=== PATIENT | male | born 1950 | race Two or more races ===

== ENCOUNTER → 2017-03-26 12:38 | Outpatient (CLI) | payer MEDICAID ==
[~2017-03-26 12:38] MED LIST: FISH OIL 1,2001 CAP PO; GLIMEPIRIDE4 MG PO; GLUCOPHAGE500 MG PO; LANTUS INSULIN10 ML SC; LISINOPRIL5 MG PO; PROTONIX40 MG PO
[2017-04-30 10:36] VITALS: BMI 35.5
== END | disposition home or self-care (01) ==
LOC: D.RT 03-10 08:00
DX: R06.02 Shortness of breath (principal); F17.210 Nicotine dependence, cigarettes, uncomplicated

== ENCOUNTER 2017-04-21 07:49 | Day surgery (SDC) | payer MEDICAID ==
[~2017-04-21] VITALS: Ht 165.1 cm; Wt 96.8 kg
--- NOTE | ~2017-04-21 | OP ---
PATIENT NAME: BAKARI ALVARADO MEDICAL RECORD: [id number] :54 LOCATION:D.OPS ADMISSION DATE: SURGEON: PEDRO HOPPER DO DATE OF OPERATION: 04/21/2017 PROCEDURE: EGD with biopsies. INDICATIONS FOR PROCEDURE: Heartburn, right upper quadrant abdominal pain, and steatosis of the liver. SCOPE: Olympus video gastroscope. MEDICATIONS: Propofol 170 mg IV per anesthesia. ESTIMATED BLOOD LOSS: Minimal. COMPLICATIONS: None. FINDINGS: Informed consent was given. The patient was made comfortable with the above medication. After reaching an adequate level of sedation by slow IV push, the patient was placed on his left side. The endoscope was then advanced under direct visualization through the mouth to the second portion of the duodenum. The upper and middle thirds of the esophagus appeared normal. At the distal third of the esophagus and GE junction, there was evidence of unsmdzan-[id number]-[id number] LA class B reflux-induced esophagitis. A couple cold forceps biopsies were taken of this site. The endoscope was advanced beyond the GE junction into the stomach and retroflexed to view the cardia, where a small sliding hiatal hernia was present. The fundus appeared normal. Throughout the body and antrum of the stomach, there was patchy erythema and granularity as well as some congestion consistent with gastritis. Random biopsies were taken to submit for histology and to rule out H. pylori. The endoscope was advanced beyond the pylorus into the duodenum where inflammation and duodenitis was present. There were some superficial ulcerations within the duodenal bulb. Once the endoscope was passed the bulb, the second and third portion of the duodenum appeared normal. The endoscope was then withdrawn from the patient. The patient tolerated the procedure well and there were no complications. IMPRESSION: 1. LA class B zcyyepjs-dp-bcewgy reflux-induced esophagitis. 2. Patchy gastritis characterized by erythema, granularity, and congestion. 3. Duodenitis with duodenal ulcerations. PLAN AND RECOMMENDATIONS: 1. Discharge home when recovery parameters are met. 2. Follow up biopsy specimen results and treatment if indicated for H. pylori. 3. Gastroesophageal reflux disease precautions. 4. Continue current medications. 5. Protonix 40 mg daily times 60 days. 6. Notify the clinic if this fails to improve the symptoms. TRANSINT:[id number] Voice Confirmation ID: [id number] DOCUMENT ID: [id number] OPERATIVE REPORT [id number] BAKARI ALVARADO NATHAN A DO at 1225 CC: [id number] DICTATION DATE: 04/21/17 1011 CNC GRINDER: 04/21/17 1211 [facility] [address] [id number]
[2017-04-21] MEDS ORDERED: LISINOPRIL5 MG PO (08:25)
[2017-04-21] MEDS ORDERED: GLUCOPHAGE500 MG PO (08:25)
[2017-04-21] MEDS ORDERED: LANTUS INSULIN10 ML SC (08:26)
[2017-04-21] MEDS ORDERED: FISH OIL 1,2001 CAP PO (08:26)
[2017-04-21] MEDS ORDERED: GLIMEPIRIDE4 MG PO (08:27)
[2017-04-21 08:50] LABS: HEMATOCRIT 40.9 % (42.0-54.0); HEMOGLOBIN 14.5 g/dL (13.5-17.5); MCH 31.7 pg (26.0-34.0); MCHC 35.5 g/dL (31.0-37.0); MCV 89.3 fL (80.0-100.0); MEAN PLATELET VOLUME 9.5 fL (7.4-10.4); RBC 4.58 10x6/uL (4.20-6.10); WBC 6.1 10x3/uL (4.8-10.8)
[2017-04-21 08:52] VITALS: BP 130/75; Ht 165.1 cm; Wt 96.8 kg
[2017-04-21 09:05] LABS: CALC OSMOLALITY 285 mosm/kg (275-300); CALCIUM 8.5 mg/dL (8.5-10.1); CHLORIDE - SERUM 103 mmol/L (98-107); CREATININE - SERUM 0.7 mg/dL (0.6-1.3); GLUCOSE 255 mg/dL (74-106); POTASSIUM - SERUM 3.9 mmol/L (3.5-5.1); SODIUM 139 mmol/L (136-145); UREA NITROGEN 9 mg/dL (7-18); eGFR NON AFRICAN AMERICAN > 90 mL/min (90-120)
[2017-04-21] MEDS ORDERED: PROTONIX40 MG PO (10:25)
== END 2017-04-21 11:10 | disposition home or self-care (01) ==
LOC: D.OPS 07:49
PROVIDERS: Anesthesiology
DX: K21.0 Gastro-esophageal reflux disease with esophagitis (principal); K29.50 Unspecified chronic gastritis without bleeding; K29.80 Duodenitis without bleeding; K76.0 Fatty (change of) liver, not elsewhere classified; Z01.812 Encounter for preprocedural laboratory examination

== ENCOUNTER 2017-04-30 09:45 | Day surgery (SDC) | payer MEDICAID ==
[~2017-04-30] VITALS: Ht 165.1 cm; Wt 96.8 kg
--- NOTE | ~2017-04-30 | OP ---
PATIENT NAME: BAKARI ALVARADO MEDICAL RECORD: [id number] :52 LOCATION:D.OPS ADMISSION DATE: SURGEON: PEDRO HOPPER DO DATE OF OPERATION: 04/30/2017 DATE OF SERVICE: 04/30/2017 PROCEDURE: Colonoscopy, attempted. SCOPE: Olympus video pediatric colonoscope. MEDICATIONS: Propofol IV per anesthesia. See anesthesia report. ESTIMATED BLOOD LOSS: None. COMPLICATIONS: None. FINDINGS: Informed consent was given. The patient was made comfortable with propofol. After reaching an adequate level of sedation by slow IV push, the patient was placed on his left side. A digital rectal examination was performed and was normal. The endoscope was then advanced under direct visualization through the rectum to the sigmoid colon. There was extensive solid stool present throughout the colon, which inhibited adequate views of the colonic mucosa. The endoscope was not advanced beyond the sigmoid colon. The procedure was terminated due to the amount of solid stool and lack of surface visible on the colon mucosa. Retroflexion was not performed on this examination. The endoscope was withdrawn from the patient. The patient tolerated the procedure and there were no complications. IMPRESSION: Inadequate prep for colorectal cancer screening. PLAN AND RECOMMENDATIONS: 1. Discharge home when recovery parameters are met. 2. Reschedule colonoscopy at the patient's convenience with further instruction regarding prep. TRANSINT:[id number] Voice Confirmation ID: [id number] DOCUMENT ID: [id number] PEDRO HOPPER DO at 1616 CC: [id number] DICTATION DATE: 04/30/17 1346 POULTRY SCIENTIST: 04/30/[address] [facility] 04/30/[address] [address]
[2017-04-30 10:25] LABS: BASOPHILS 0.2 % (0-2); EOSINOPHILS 3.8 % (0-7); HEMATOCRIT 43.3 % (42.0-54.0); HEMOGLOBIN 15.1 g/dL (13.5-17.5); IMMATURE GRANULOCYTES 0.2 % (0-5); LYMPHOCYTES 35.3 % (15-50); MCH 31.5 pg (26.0-34.0); MCHC 34.9 g/dL (31.0-37.0); MCV 90.4 fL (80.0-100.0); MEAN PLATELET VOLUME 9.5 fL (7.4-10.4); MONOCYTES 10.2 % (2-11); NEUTROPHILS 50.3 % (40-80); PLATELET COUNT 243 10x3/uL (130-400); RBC 4.79 10x6/uL (4.20-6.10); WBC 6.7 10x3/uL (4.8-10.8)
[2017-04-30 10:36] VITALS: BP 136/80; Ht 165.1 cm; Wt 96.8 kg
[2017-04-30 10:41] LABS: CALC OSMOLALITY 287 mosm/kg (275-300); CALCIUM 8.7 mg/dL (8.5-10.1); CARBON DIOXIDE 28.5 mmol/L (21.0-32.0); CHLORIDE - SERUM 103 mmol/L (98-107); GLUCOSE 244 mg/dL (74-106); POTASSIUM - SERUM 4.3 mmol/L (3.5-5.1); SODIUM 140 mmol/L (136-145); UREA NITROGEN 14 mg/dL (7-18); eGFR NON AFRICAN AMERICAN 80 mL/min (90-120)
== END 2017-04-30 14:43 | disposition home or self-care (01) ==
LOC: D.OPS 09:45
PROVIDERS: Internal Medicine Gastroenterology
DX: Z12.11 Encounter for screening for malignant neoplasm of colon (principal); F17.200 Nicotine dependence, unspecified, uncomplicated; J45.909 Unspecified asthma, uncomplicated; I10 Essential (primary) hypertension; E11.9 Type 2 diabetes mellitus without complications; K21.9 Gastro-esophageal reflux disease without esophagitis

== ENCOUNTER 2017-05-28 09:47 | Day surgery (SDC) | payer MEDICAID ==
[~2017-05-28] VITALS: Ht 165.1 cm; Wt 96.8 kg
--- NOTE | ~2017-05-28 | OP ---
PATIENT NAME: BAKARI ALVARADO MEDICAL RECORD: [id number] :52 LOCATION:D.OPS ADMISSION DATE: SURGEON: PEDRO HOPPER DO DATE OF OPERATION: 05/28/2017 PROCEDURE: Colonoscopy with biopsies and polypectomy. INDICATIONS FOR PROCEDURE: Screening colonoscopy. SCOPE: [employer] video pediatric colonoscope. MEDICATIONS: Propofol 400 mg IV per anesthesia. WITHDRAWAL TIME: 18 minutes. ESTIMATED BLOOD LOSS: Minimal. COMPLICATIONS: None. FINDINGS: Informed consent was given. The patient was made comfortable with the above medication. After reaching an adequate level of sedation by slow IV push, the patient was placed on his left side. A digital rectal examination was performed and was normal. The endoscope was then advanced under direct visualization through the rectum to the terminal ileum. The scope was slowly withdrawn and mucosa was carefully examined. The prep quality was fair. In the cecum and ascending colon, there were a few patchy areas of pseudomembranes, which appeared consistent with C. difficile colitis. Cold forceps biopsies were taken of few of these sites for confirmation of the diagnosis. There were scattered diverticula of small diameter throughout the entire colon. Severity was mild. There were 3 polyps visualized on today's examination. The first was located in the transverse colon. It measured approximately 7-8 mm in diameter and was sessile. It was removed in 1 piece using hot snare and completely retrieved. Two other polyps were located in the rectum and were benign-appearing and sessile. They measured approximately 3-4 mm in diameter and removed using cold snare in 1 piece. Retroflexion was performed in the rectum with visualization of grade I nonbleeding internal hemorrhoids. The endoscope was then withdrawn from the patient. The patient tolerated the procedure well and there were no complications. IMPRESSION: 1. Three polyps as described above removed using snare, both hot and cold. 2. Mild diverticulosis involving all segments of the colon. 3. Grade I internal hemorrhoids. PLAN AND RECOMMENDATIONS: 1. Discharge home when recovery parameters are met. 2. Follow up biopsy specimen results. 3. High fiber diet. 4. Continue current medications. 5. Flagyl 500 mg orally t.i.d. for 10 days for C. difficile colitis. 6. Recall colonoscopy in 3 years for surveillance with known history of polyps. TRANSINT:[id number] Voice Confirmation ID: [id number] DOCUMENT ID: [id number] OPERATIVE REPORT [id number] BAKARI ALVARADO NATHAN A DO CC: [id number] DICTATION DATE: 05/28/17 1253 EXAMINATION GRADER: 05/28/17 1422 [facility] [address] [id number]
[2017-05-28 10:56] VITALS: BP 171/93; Ht 165.1 cm; Wt 96.8 kg
[2017-05-28 12:03] LABS: CALC OSMOLALITY 287 mosm/kg (275-300); CALCIUM 8.5 mg/dL (8.5-10.1); CARBON DIOXIDE 24.6 mmol/L (21.0-32.0); CHLORIDE - SERUM 103 mmol/L (98-107); CREATININE - SERUM 0.7 mg/dL (0.6-1.3); POTASSIUM - SERUM 4.5 mmol/L (3.5-5.1); SODIUM 138 mmol/L (136-145); UREA NITROGEN 10 mg/dL (7-18); eGFR NON AFRICAN AMERICAN > 90 mL/min (90-120)
[2017-05-28 12:04] LABS: GLUCOSE 328 mg/dL (74-106)
[2017-05-28 12:06] LABS: BASOPHILS 0.2 % (0-2); EOSINOPHILS 3.2 % (0-7); HEMOGLOBIN 15.8 g/dL (13.5-17.5); LYMPHOCYTES 48.3 % (15-50); MCH 31.7 pg (26.0-34.0); MCHC 35.9 g/dL (31.0-37.0); MCV 88.2 fL (80.0-100.0); MEAN PLATELET VOLUME 10.2 fL (7.4-10.4); NEUTROPHILS 39.3 % (40-80); PLATELET COUNT 216 10x3/uL (130-400); RBC 4.99 10x6/uL (4.20-6.10); RDW 12.6 % (11.5-14.5); WBC 5.7 10x3/uL (4.8-10.8)
== END 2017-05-28 15:00 | disposition home or self-care (01) ==
LOC: D.OPS 09:47
PROVIDERS: Anesthesiology
DX: Z12.11 Encounter for screening for malignant neoplasm of colon (principal); K63.5 Polyp of colon; D12.3 Benign neoplasm of transverse colon; K57.30 Diverticulosis of large intestine without perforation or abscess without bleeding; K64.0 First degree hemorrhoids; Z01.812 Encounter for preprocedural laboratory examination

== ENCOUNTER → 2017-06-17 09:54 | Outpatient (CLI) | payer MEDICAID ==
[2017-05-28 10:56] VITALS: BMI 35.5
== END | disposition home or self-care (01) ==
LOC: D.NM 09:54
DX: R07.9 Chest pain, unspecified (principal)

== ENCOUNTER → 2017-07-07 10:20 | Outpatient (CLI) | payer MEDICARE ==
[2017-05-28 10:56] VITALS: BMI 35.5
== END | disposition home or self-care (01) ==
LOC: D.RAD 09:15
DX: M25.561 Pain in right knee (principal)

== ENCOUNTER 2020-06-30 06:53 | Day surgery (SDC) | payer MEDICARE, MEDICAID ==
[~2020-06-30] VITALS: Ht 165.1 cm; Wt 95.3 kg
[~2020-06-30 06:53] MED LIST changes: +CYCLOBENZAPRINE5 MG PO; +GLUCOTROL XL 1010 MG PO; +HYTRIN1 MG PO; +LANTUS INS100 UNITS/ SC; -LANTUS INSULIN10 ML SC; +TENORMIN50 MG PO; +ULTRAM50 MG PO; +VOLTAREN100 GM TOPICAL
[2020-06-30 07:21] LABS: BASOPHILS 0.4 % (0-2); EOSINOPHILS 5.4 % (0-7); HEMATOCRIT 39.9 % (42.0-54.0); IMMATURE GRANULOCYTES 0.3 % (0-5); LYMPHOCYTE ABS# 2.36 10x3/uL (1.32-3.57); LYMPHOCYTES 29.7 % (15-50); MCH 31.9 pg (26.0-34.0); MCHC 35.1 g/dL (31.0-37.0); MCV 90.9 fL (80.0-100.0); MEAN PLATELET VOLUME 8.9 fL (7.4-10.4); MONOCYTES 9.4 % (2-11); NEUTROPHIL ABS# 4.35 10x3/uL (1.78-5.38); NEUTROPHILS 54.8 % (40-80); PLATELET COUNT 263 10x3/uL (130-400); RBC 4.39 10x6/uL (4.20-6.10); RDW 13.1 % (11.5-14.5); WBC 7.9 10x3/uL (4.8-10.8)
[2020-06-30 07:23] LABS: CALC OSMOLALITY 281 mosm/kg (275-300); CALCIUM 8.4 mg/dL (8.5-10.1); CARBON DIOXIDE 30.2 mmol/L (21.0-32.0); CHLORIDE - SERUM 106 mmol/L (98-107); CREATININE - SERUM 0.8 mg/dL (0.6-1.3); GLUCOSE 165 mg/dL (74-106); POTASSIUM - SERUM 3.8 mmol/L (3.5-5.1); SODIUM 140 mmol/L (136-145); UREA NITROGEN 10 mg/dL (7-18); eGFR NON AFRICAN AMERICAN > 90 mL/min (90-120)
[2020-06-30 07:34] LABS: SARS-CoV-2 ANTIGEN NEGATIVE- SARS-COV-2 (NEGATIVE)
[2020-06-30 08:22] VITALS: BP 131/74; Ht 165.1 cm; Wt 95.3 kg
--- NOTE | 2020-06-30 12:45 | NUR ---
LEFT WRIST PIV DC'D WITH TIP INTACT. DISCHARGE INSTRUCTIONS REVIEWED WITH PATIENT. PATIENT MAKING CALLS TO FIND A RIDE HOME, PATIENT STATES THE PERSON WHO WAS SUPPOSED TO TAKE HIM HOME NOW SAYS THEY CAN'T. THIS NURSE ASSISTS PATIENT TO DRESS IN PERSONAL CLOTHING AND KEEP OPERATIVE EXTREMITY SUPPORTED AND GET SLING SHOT SLING PUT BACK ON CORRECTLY. PATIENT AMBULATING AROUND ROOM WITHOUT UNSTEADINESS OR DIZZINESS
--- NOTE | 2020-06-30 13:53 | NUR ---
CAB CALLED FOR PATIENT, DUE TO PATIENT NOT BEING ABLE TO SECURE TRANSPORTATION HOME. NOW AWAITING CAB TO ARRIVE, PATIENT LYING IN BED, AWAKE, ALERT, DENIES COMPLAINTS, FULLY DRESSED, HAS SLING ON
--- NOTE | 2020-07-01 10:32 | OP ---
PATIENT NAME: OLIVIA TABARES MEDICAL RECORD: [id number] :52 LOCATION:YASHIRA ADMISSION DATE: SURGEON: JUWAN STOKES DO DATE OF OPERATION: 06/30/2020 PROCEDURE PERFORMED: Right shoulder arthroscopy with rotator cuff repair, distal clavicle excision and subacromial decompression, labral debridement and biceps tenodesis. PREOPERATIVE DIAGNOSES: Right shoulder full thickness rotator cuff tear, SLAP tear, subacromial impingement and acromioclavicular joint arthritis POSTOPERATIVE DIAGNOSES: Right shoulder full thickness rotator cuff tear, SLAP tear, subacromial impingement and acromioclavicular joint arthritis. INDICATIONS: Mr. Olson is a 70-year-old male who has had right shoulder pain for quite some time. He had an MRI showing the above findings. I discussed with him the risks and benefits of the procedure including infection, bleeding, damage to nerve or vessel, need for further surgery, continued pain, retear of the tendon, need for physical therapy, possibility of arthrofibrosis or frozen shoulder syndrome, continued pain and a fracture and he signed the consent. SURGEON: Juwan Stokes DO DESCRIPTION OF PROCEDURE: The patient was taken to the operative suite after getting a block by anesthesia. He was given 900 mg of clindamycin laid in the left lateral decubitus position with the right shoulder up. Right shoulder was then prepped and draped in sterile fashion. He was sedated and LMA was placed. A timeout was performed and everyone was in agreeance with the correct side, site, patient and procedure. After he was prepped and draped, I then inserted an 18-gauge spinal needle into the shoulder joint itself and inflated it with 60 mL of normal saline. After it was inflated with 60 cc normal saline, I then made an incision over the posterior portal site with an 11-blade scalpel. The trocar was then removed and the joint then entered the camera into the joint and then we established an anterior portal with an 18-gauge spinal needle 11-blade scalpel. Trocar was entered in, then saw a SLAP tear there. He appeared to have good fibers intact on the articular side, made some small tears in it. The subscapularis tendon was in good repair. The infraspinatus had some fraying and in the biceps tendon as well. The joint was in good shape and I did not see any chondromalacia in the inferior gutter. I then brought in a bur through the anterior portal and did a biceps tenotomy. I then went to the subacromial space, established a lateral portal with an 18-gauge spinal needle and 11-blade scalpel. There was subacromial decompression, bursectomy, distal clavicle excision through anterior portal and acromioplasty through a lateral portal. He had severe tearing of the supraspinatus tendon on the bursal side. I debrided the best I could and saw there was full thickness. I then marked it with a spinal needle and opened up the lateral portal with a 15 blade scalpel and then careful dissection down to the tear and then put a medial row anchor, but through the tendon with 4 suture tapes and repaired it nicely over to a lateral row anchor. I then put a larger Ramirez implant on and stapled it into place. I then went to the anterior humerus, made an incision, dissected carefully around the long head of the biceps tendon, put a hole in the humerus with the drill and then used a 2.9 jugular lock after whipstitching the tendon, put it through the loop and tied it to the ToggleLoc loop and cinched it down to the humerus. I then cut the loop, went through the long head biceps tendon and tied it down and OPERATIVE REPORT [id number] OLIVIA TABARES cut the excess tendon and sutured then irrigated. Yeny Jade, certified surgical assistant then closed 2 open site with 2-0 Vicryl in inverted interrupted fashion, 4-0 Monocryl ran on the skin and then 4-0 Monocryl on the portal site, placed Dermabond glue on all of them and dressed with Telfa and Tegaderm. He was awakened and put in a sling, taken to recovery in stable condition. BLOOD LOSS: Minimal. COMPLICATIONS: None. Please note, I also did a labral debridement, biceps tenotomy with the bur and debrided the torn labrum back to a stable point. TRANSINT:[id number] Voice Confirmation ID: [id number] DOCUMENT ID: [id number] JUWAN STOKES DO at 1032 CC: [id number] DICTATION DATE: 06/30/20 1103 BRAIDER SETTER: 06/30/20 2252 [facility] 06/30/20 [place] [id number] [facility] [place] [id number]
== END 2020-06-30 16:05 | disposition home or self-care (01) ==
LOC: D.OPS 06:53
PROVIDERS: Anesthesiology; ATTEND Orthopaedic Surgery
DX: M75.41 Impingement syndrome of right shoulder (principal); M13.811 Other specified arthritis, right shoulder; M75.121 Complete rotator cuff tear or rupture of right shoulder, not specified as traumatic; M25.511 Pain in right shoulder

== ENCOUNTER 2020-08-08 09:17 | Inpatient (IN) | payer MEDICARE, MEDICAID ==
[~2020-08-08] VITALS: Ht 165.1 cm; Wt 95.3 kg
--- NOTE | ~2020-08-08 | HEMODYNAMI ---
PATIENT:OLIVIA TABARES MEDICAL RECORD: [id number] : 54 [id number] ADMISSION DATE: 08/08/20 Generatedon:113:48 Patient name: OLIVIA VILLEGAS Patient #: [id number] SS N: : 1950 Date of study: 08/08/2020 Page: Of Hemodynamic Procedure Report Patient Data Patient Demographics Procedure consent was obtained First Name: OLIVIA Gender: Male Last Name: JENNY VILLEGAS : 1950 [facility] Initial: A Age: 70 year(s) Patient #: [id number] Race: Other Additional ID: [id number] Contact details Address: [address] [place] [address] State: [place] City: [place] Zip code: [address] Past Medical History Allergies: No known allergies Admission Admission Data Admission Date: 08/08/2020 Admission Time: 9:17 Room #: D.2238 Height (in.): 65 BSA: 2.02 (m2) Height (cm.): 165.1 BMI: 34.95 (kg/m2) Weight (lbs.): 210 Weight (kg.): 95.25 Procedure Procedure Types Cath Procedure Peripheral Cath Diagnostic Procedure PICC PICC Line Placement Procedure Description Procedure Date Procedure Date: 08/08/2020 Procedure Start Time: 13:39 Procedure Staff Name Function Lino Rivas MD Performing Physician Sabina Trinh RT Accountant Kristel Ruelas RN Nurse Eran Son RT Scrub Procedure Data Cath Procedure Fluoroscopy Diagnostic fluoroscopy Total fluoroscopy Time: 0.3 time: 0.3 min min Diagnostic fluoroscopy Total fluoroscopy dose: 3 dose: 3 mGy mGy Hemodynamics Rest BSA: 2.02 (m2) O2 Consumption: Estimated: 274.72 (ml/min) O2 Consumption indexed : Estimated:136 (ml/min/m) Pre Cath Intra NCS Post Cath Procedure Log Time Note 13:12:57 Patient Height : 65 inches 13:13:06 Patient Weight : 210 lbs 13:13:39 Use device set PICC 13:13:41 SHIELD Tiaraew ([id number]) opened to sterile field. 13:13:44 Sterile Angiographic Pack opened to sterile field. 13:13:45 Bag Decanter (2002S) opened to sterile field. 13:13:54 PowerPICC 5Fr double lumen catheter opened to sterile field. 13:13:58 - 13:25:57 Time tracking: Regular hours (M-F 7:00 - 5:00) 13:26:11 Patient received from Med/Surg to IR Alert and oriented. Tansferred to table in Supine position. 13:26:15 Signed procedure consent form obtained from patient. 13:26:17 Pre-procedure instructions explained to patient. 13:26:18 Pre-op teaching completed and patient verbalized understanding. 13:26:30 Patient allergic to No known allergies 13:26:44 Left Arm area was prepped with chlora-prep and draped in sterile fashio n 13::46 - 13:34:50 Physician arrived 13:34:50 --------ALL STOP TIME OUT------ 13:34:51 Final Timeout: patient, procedure, and site verified with staff and physician. All members of the team are in agreement. 13:35:32 Full Disclosure recording started 13:35:32 Procedure started. 13:44:23 Venous access obtained using ultrasound guidance. 13:44:26 PICC line was trimmed to 48cm and advanced to the superior vena cava.Position verified under fluoroscopy. 13:46:23 Procedure ended.(Physican Out) 13:46:32 Fluoroscopy time 00.30 minutes. 13:46:34 Fluoroscopy dose: 3 mGy 13:46:34 Flurop Dose total: 3 13:46:37 Procedure and supply charges have been captured, reviewed, submitted an d are correct. Device Usage Item Name Manufacture Quantity Catalog Hospital Part Current Minimal Lot# / Number Charge Number Stock Stock Serial# Code BEBETO Higginbotham 1 [id number] 5 Sorbaview ([id number]) Sterile Cardinal 1 [id number] 5 Angiographic Health Pack Bag Decanter Microtek 1 [id number] [id number] 5 () [employer] PowerPICC Bard 1 [id number] [id number] 5 5Fr double lumen catheter Signature Audit [place] Stage Time Signature Unsigned Intra-Procedure 08/08/2020 Sabina Trinh 1:48:46 PM RT(R) [facility] [address] [place] [address]
[2020-08-08 10:40] LABS: BASOPHILS 0.2 % (0-2); EOSINOPHILS 2.6 % (0-7); HEMATOCRIT 37.6 % (42.0-54.0); IMMATURE GRANULOCYTES 0.2 % (0-5); LYMPHOCYTE ABS# 2.97 10x3/uL (1.32-3.57); LYMPHOCYTES 30.7 % (15-50); MCH 30.1 pg (26.0-34.0); MCHC 34.6 g/dL (31.0-37.0); MEAN PLATELET VOLUME 8.4 fL (7.4-10.4); MONOCYTES 7.4 % (2-11); NEUTROPHIL ABS# 5.71 10x3/uL (1.78-5.38); NEUTROPHILS 58.9 % (40-80); RBC 4.32 10x6/uL (4.20-6.10); RDW 12.5 % (11.5-14.5); WBC 9.7 10x3/uL (4.8-10.8)
[2020-08-08 10:41] LABS: PLATELET COUNT 361 10x3/uL (130-400)
[2020-08-08 10:50] LABS: C-REACTIVE PROTEIN 3.3 mg/dL (0.0-0.9); CALC OSMOLALITY 279 mosm/kg (275-300); CARBON DIOXIDE 26.4 mmol/L (21.0-32.0); CHLORIDE - SERUM 106 mmol/L (98-107); CREATININE - SERUM 0.7 mg/dL (0.6-1.3); GLUCOSE 141 mg/dL (74-106); POTASSIUM - SERUM 4.2 mmol/L (3.5-5.1); SODIUM 140 mmol/L (136-145); UREA NITROGEN 11 mg/dL (7-18); eGFR NON AFRICAN AMERICAN > 90 mL/min (90-120)
[2020-08-08 11:30] VITALS: BP 162/85; BMI 35.0
[2020-08-08 12:50] LABS: ERYTHROCYTE SEDIMENTATION RATE 51 mm/hr (0-20)
--- NOTE | 2020-08-08 13:10 | NUR ---
PATIENT TO GET PICC LINE AT THIS TIME
[2020-08-08 13:38] VITALS: BP 112/85
--- NOTE | 2020-08-08 14:50 | NUR ---
PATIENT AWAKE WITH NO COMPLAINTS OR SIGNS OF DISTRESS AT THIS TIME. DREESSING TO SHOULDER CDI. BSCDS ON AND WORKING. CALLL IGHT WITHIN REACH.
--- NOTE | 2020-08-08 15:45 | NUR ---
PATIENT UPSET AND MAD BECAUSE HE SAID HE IS TIRED OF BEING NPO. TOOK SCD MACHINE OFF. STATED HE DIDNT WANT TO WEAR THEM. IV INTACT. LAID BACK IN BED. CALLLIGHT WITHIN REACH.
[2020-08-08 17:56] VITALS: BP 173/78
--- NOTE | 2020-08-08 19:30 | NUR ---
PATIENT IN BED WITH IV INTACT. DR. STOKES IN WITH PATIENT. CALL LIGHT WITHIN REACH.
[2020-08-09 07:10] VITALS: BP 163/95
[2020-08-09 07:22] LABS: BASOPHILS 0.3 % (0-2); EOSINOPHILS 1.8 % (0-7); HEMATOCRIT 38.6 % (42.0-54.0); IMMATURE GRANULOCYTES 0.2 % (0-5); LYMPHOCYTE ABS# 3.01 10x3/uL (1.32-3.57); LYMPHOCYTES 27.3 % (15-50); MCH 29.6 pg (26.0-34.0); MCHC 33.7 g/dL (31.0-37.0); MCV 87.9 fL (80.0-100.0); MEAN PLATELET VOLUME 8.7 fL (7.4-10.4); MONOCYTES 9.4 % (2-11); NEUTROPHIL ABS# 6.73 10x3/uL (1.78-5.38); PLATELET COUNT 390 10x3/uL (130-400); RBC 4.39 10x6/uL (4.20-6.10); RDW 12.8 % (11.5-14.5)
--- NOTE | 2020-08-09 07:30 | NUR ---
LAYING IN BED RESTING, NO DISTRESS NOTED, NO NEEDS VOICED, CALL LIGHT IN REACH, WILL MONITOR
[2020-08-09 07:36] LABS: CALC OSMOLALITY 283 mosm/kg (275-300); CALCIUM 8.6 mg/dL (8.5-10.1); CARBON DIOXIDE 25.2 mmol/L (21.0-32.0); CHLORIDE - SERUM 103 mmol/L (98-107); CREATININE - SERUM 0.8 mg/dL (0.6-1.3); POTASSIUM - SERUM 3.7 mmol/L (3.5-5.1); SODIUM 139 mmol/L (136-145); UREA NITROGEN 12 mg/dL (7-18); eGFR NON AFRICAN AMERICAN > 90 mL/min (90-120)
[2020-08-09 07:37] LABS: GLUCOSE 214 mg/dL (74-106)
--- NOTE | 2020-08-09 08:10 | OP ---
PATIENT NAME: BOGDAN TABARES MEDICAL RECORD: [id number] :54 LOCATION:D.MS Reeves2238 ADMISSION DATE:08/08/20 SURGEON: EFREN STOKES DO DATE OF OPERATION: 08/08/2020 PROCEDURE PERFORMED: Right shoulder arthroscopy with irrigation and debridement. PREOPERATIVE DIAGNOSIS: Right shoulder postoperative infection. POSTOPERATIVE DIAGNOSIS: Right shoulder postoperative infection. INDICATIONS: Mr. Bogdan Plascencia is a 70-year-old male who underwent right shoulder mini open rotator cuff repair on . He started to have drainage from his wound and was placed on oral antibiotics and did not help. He then came to the clinic with draining purulent fluid. What him on the schedule for today for the procedure. I informed him of the risks of this including arthrofibrosis of the shoulder, continued pain, continued infection, need for further surgery, serial debridements, re-repair of his rotator cuff, blood clots, need for long-term antibiotics and even and he signed the consent. SURGEON: Efren Stokes DO DESCRIPTION OF PROCEDURE: The patient was taken to the operative suite, laid in left lateral decubitus position with the right shoulder up. He was given 2 grams of Ancef. He was sedated and LMA was placed. The right shoulder was prepped and draped in sterile fashion. A timeout was performed and everyone was in agreement with correct side, site, patient and procedure. I then began by making an incision over the lateral mini open incision and then purulent fluid came out of that incision after I opened it. We then cultured that. I then inflated the shoulder joint with 60 mL normal saline into the trocar into the joint through a posterior portal after I established an 11-blade scalpel, anterior portal was established with spinal needle 11-blade scalpel, trocar enter into the joint. I then brought the shaver and I debrided the synovium of the joint as well as I could. I then irrigated the joint out with 6 liters of saline. We then went to the subacromial space and went to a lateral portal and debrided the subacromial space with shaver and got a tissue biopsy. I then irrigated with 6 liters in the subacromial space. I debrided the subacromial space deep tissue. Anchors were pulled out also. I then closed the skin with 4-0 Monocryl in inverted interrupted fashion on the anterior, posterior and lateral incisions. He was then dressed with Telfa and Tegaderm, awakened and taken to recovery in stable condition. BLOOD LOSS: Minimal. COMPLICATIONS: None. TRANSINT:[id number] Voice Confirmation ID: [id number] DOCUMENT ID: [id number] OPERATIVE REPORT [id number] BOGDAN TABARES MICHAEL D, DO at 0810 CC: [id number] DICTATION DATE: 08/08/202207 PAINTER AND BODY WORK: 08/09/20 0230 ADM IN [facility] [address] [place] [address]
[2020-08-09 09:23] VITALS: BP 163/95
--- NOTE | 2020-08-09 10:10 | NUR ---
pt sleeping, will monitor
--- NOTE | 2020-08-09 12:00 | NUR ---
PT UP AMBULATING IN HALLWAYS, TOLERATING WELL
[2020-08-09 13:28] VITALS: BP 165/91
--- NOTE | 2020-08-09 15:18 | NUR ---
PT SLEEPING, NO DISTRESS NOTED, CALL LIGHT IN REACH, WILL MONITOR
--- NOTE | 2020-08-09 17:41 | NUR ---
RESTING COMFORTABLE, NO NEEDS VOICED, CALL LIGHT IN REACH
[2020-08-09 17:47] VITALS: BP 155/74
[2020-08-09 20:00] VITALS: BP 179/66
--- NOTE | 2020-08-10 01:37 | NUR ---
I have reviewed this patient and I concur with the Shift Assessment completed by the Licensed Practical Nurse today this shift.
[2020-08-10 04:00] VITALS: BP 198/91
[2020-08-10 07:23] LABS: CALC OSMOLALITY 282 mosm/kg (275-300); CALCIUM 8.7 mg/dL (8.5-10.1); CARBON DIOXIDE 27.4 mmol/L (21.0-32.0); CHLORIDE - SERUM 106 mmol/L (98-107); CREATININE - SERUM 0.8 mg/dL (0.6-1.3); POTASSIUM - SERUM 3.8 mmol/L (3.5-5.1); SODIUM 141 mmol/L (136-145); UREA NITROGEN 11 mg/dL (7-18); eGFR NON AFRICAN AMERICAN > 90 mL/min (90-120)
[2020-08-10 07:24] LABS: GLUCOSE 159 mg/dL (74-106)
[2020-08-10 07:34] LABS: BASOPHILS 0.2 % (0-2); EOSINOPHILS 5.4 % (0-7); HEMATOCRIT 36.9 % (42.0-54.0); HEMOGLOBIN 12.7 g/dL (13.5-17.5); IMMATURE GRANULOCYTES 0.1 % (0-5); LYMPHOCYTE ABS# 2.54 10x3/uL (1.32-3.57); LYMPHOCYTES 31.7 % (15-50); MCH 30.1 pg (26.0-34.0); MCHC 34.4 g/dL (31.0-37.0); MCV 87.4 fL (80.0-100.0); MEAN PLATELET VOLUME 8.9 fL (7.4-10.4); MONOCYTES 9.5 % (2-11); NEUTROPHIL ABS# 4.26 10x3/uL (1.78-5.38); NEUTROPHILS 53.1 % (40-80); PLATELET COUNT 337 10x3/uL (130-400); RBC 4.22 10x6/uL (4.20-6.10); RDW 12.7 % (11.5-14.5)
[2020-08-10 09:18] VITALS: BP 196/99
[2020-08-10 12:37] VITALS: BP 167/83
[2020-08-10 13:55] VITALS: Ht 165.1 cm; Wt 95.3 kg
[2020-08-10 16:46] VITALS: BP 179/87
--- NOTE | 2020-08-10 17:57 | MORECARE ---
CASE MANAGEMENT DISCHARGE SUMMARY PATIENT: OLIVIA TABARES UNIT: [id number] ADM DATE: 08/08/20 AGE: 70 : 52 SEX: M ROOM/BED: D.[facility]8 AUTHOR: OSVALDODOC PHYSICIAN: REFERRING PHYSICIAN: EFREN STOKES DO DATE OF SERVICE: 08/10/20 Case Management Discharge Planning Summary COMMENTS ENTERED DATE: 08/10/20 17:48 CT COMMENT TYPE: Discharge Planning REVIEWER: Daphne Hahn REFERRAL HAS BEEN SENT TO [facility] AND [facility] FOR QUOTES AND AVAILABILTY SPOKE WITH YEMI AND MONI AND THEY BOTH WILL GET BACK WITH ME IN THE AM DCP REVIEW SUMMARY ANTICIPATED D/C DATE: EXPECTED LOS : CASE STATUS: DCP Initiated INITIAL REVIEW: 08/08/2020 INITIAL REVIEWER: Daphne Hahn FINAL DISCHARGE DISPOSITION: : FINAL REVIEWER: FINAL REVIEW DATE: DCP Focus Questions & Answers QUESTION: ANSWER : PATIENT: OLIVIA TABARES ENCOUNTER: [id number] MEDICAL RECORD#: [id number] ADMISSION DATE: 08/08/2020 DISCHARGE DATE: ATTENDING MD: EFREN ALVAREZ : AGE: 70 MARITAL STATUS: S DC PLAN ID: [id number] FACILITY: [facility] PRINTED ON: 08/10/20 17:57 CT All edits/amendments must be made on the electronic document DICTATION DATE: 08/10/201756 FIRE COORDINATOR: TRACY 08/10/201756 RPT#: [id number] DC DATE: STATUS: ADM IN [facility] [address] [place] [address] END OF REPORT
[2020-08-10 20:00] VITALS: BP 162/72
--- NOTE | 2020-08-10 20:30 | NUR ---
PT SITTING UP IN BED WITHOUT DISTRESS, AOX4. DENIES PAIN OR NEEDS AT THIS TIME. STATES HE IS JUST READY TO GO HOME. CL IN REACH
[2020-08-11] VITALS: BP 141/73
[2020-08-11 04:00] VITALS: BP 170/82
[2020-08-11 06:49] LABS: BASOPHILS 0.2 % (0-2); EOSINOPHILS 5.2 % (0-7); HEMATOCRIT 36.7 % (42.0-54.0); HEMOGLOBIN 12.4 g/dL (13.5-17.5); IMMATURE GRANULOCYTES 0.1 % (0-5); LYMPHOCYTE ABS# 2.51 10x3/uL (1.32-3.57); LYMPHOCYTES 26.5 % (15-50); MCH 29.8 pg (26.0-34.0); MCHC 33.8 g/dL (31.0-37.0); MCV 88.2 fL (80.0-100.0); MEAN PLATELET VOLUME 9.1 fL (7.4-10.4); MONOCYTES 9.9 % (2-11); NEUTROPHILS 58.1 % (40-80); PLATELET COUNT 349 10x3/uL (130-400); RBC 4.16 10x6/uL (4.20-6.10); RDW 12.8 % (11.5-14.5); WBC 9.5 10x3/uL (4.8-10.8)
[2020-08-11 07:18] LABS: CALC OSMOLALITY 282 mosm/kg (275-300); CALCIUM 8.9 mg/dL (8.5-10.1); CARBON DIOXIDE 24.4 mmol/L (21.0-32.0); CHLORIDE - SERUM 103 mmol/L (98-107); CREATININE - SERUM 0.7 mg/dL (0.6-1.3); GLUCOSE 193 mg/dL (74-106); POTASSIUM - SERUM 3.6 mmol/L (3.5-5.1); SODIUM 140 mmol/L (136-145); UREA NITROGEN 10 mg/dL (7-18); eGFR NON AFRICAN AMERICAN > 90 mL/min (90-120)
[2020-08-11 09:41] VITALS: BP 184/91
--- NOTE | 2020-08-11 10:17 | MORECARE ---
CASE MANAGEMENT DISCHARGE SUMMARY PATIENT: OLIVIA TABARES UNIT: [id number] ADM DATE: 08/08/20 AGE: 70 : 52 SEX: M ROOM/BED: D.2238 AUTHOR: OSVALDODOC PHYSICIAN: REFERRING PHYSICIAN: EFREN STOKES DO DATE OF SERVICE: 08/11/20 Case Management Discharge Planning Summary COMMENTS ENTERED DATE: 08/10/20 17:48 CT COMMENT TYPE: Discharge Planning REVIEWER: Daphne Hahn REFERRAL HAS BEEN SENT TO [facility] FOR QUOTES AND AVAILABILTY SPOKE WITH YEMI AND MONI AND THEY BOTH WILL GET BACK WITH ME IN THE AM DCP REVIEW SUMMARY ANTICIPATED D/C DATE: EXPECTED LOS : CASE STATUS: DCP Initiated INITIAL REVIEW: 08/08/2020 INITIAL REVIEWER: Daphne Hahn FINAL DISCHARGE DISPOSITION: : FINAL REVIEWER: FINAL REVIEW DATE: DCP Focus Questions & Answers DCP Screen QUESTION: ANSWER High Risk Factors: : High risk meds DCP Evaluation QUESTION: ANSWER Patient's ability to cope with chronic illness : d. No chronic illness Would patient like to participate in any Care Coordination programs (if applicable): : Not applicable Mental health screen: : No mental health history DCP Re-evaluation QUESTION: ANSWER Would patient like to participate in any Care Coordination programs (if applicable): : Not applicable PATIENT: OLIVIA TABARES ENCOUNTER: [id number] MEDICAL RECORD#: [id number] ADMISSION DATE: 08/08/2020 DISCHARGE DATE: ATTENDING MD: EFREN ALVAREZ : AGE: 70 MARITAL STATUS: S DC PLAN ID: [id number] FACILITY: [facility] PRINTED ON: 08/11/20 10:17 CT All edits/amendments must be made on the electronic document DICTATION DATE: 08/11/20 1017 ELECTRIC SERVICEMAN: TRACY 08/11/20 1017 RPT#: [id number] DC DATE: STATUS: ADM IN [facility] [address] [place] [address] END OF REPORT
--- NOTE | 2020-08-11 10:29 | MORECARE ---
CASE MANAGEMENT DISCHARGE SUMMARY PATIENT: OLIVIA TABARES UNIT: [id number] ADM DATE: 08/08/20 AGE: 70 : 52 SEX: M ROOM/BED: D.2238 AUTHOR: NISA RILEY PHYSICIAN: REFERRING PHYSICIAN: EFREN STOKES DO DATE OF SERVICE: 08/11/20 Case Management Discharge Planning Summary COMMENTS ENTERED DATE: 08/10/20 17:48 CT COMMENT TYPE: Discharge Planning REVIEWER: Daphne Hahn REFERRAL HAS BEEN SENT TO [facility] AND [employer] FOR QUOTES AND AVAILABILTY SPOKE WITH YEMI AND MONI AND THEY BOTH WILL GET BACK WITH ME IN THE AM DCP REVIEW SUMMARY ANTICIPATED D/C DATE: EXPECTED LOS : CASE STATUS: DCP Initiated INITIAL REVIEW: 08/08/2020 INITIAL REVIEWER: Daphne Hahn FINAL DISCHARGE DISPOSITION: : FINAL REVIEWER: FINAL REVIEW DATE: DCP Focus Questions & Answers DCP Screen QUESTION: ANSWER High Risk Factors: : High risk meds DCP Evaluation QUESTION: ANSWER Patient and/or caregiver agree upon recommended discharge plan? : Yes Family / Caregiver's ability to cope with chronic illness: : a. Adequate (ability to meet patient's medical needs, ensures patient attends medical appts.) Patient's current cognitive status: : *Oriented to person, place, situation, time and present Patient's ability to cope with chronic illness : d. No chronic illness Does the patient have the ability to pay for or attain post discharge needs / services? : Yes Functional screen assessment: : Other Physical Status: : Independent with ADL's Is there a likelihood that the patient will require additional services to return to the preadmission environment? : Yes Functional screen comments: : WILL NEED IV ABX AT HOME Living Arrangements: : Home with others Other Equipment comments: : IV ABX AT HOME Results of this evaluation have been discussed with: : Patient Patient with capacity for self-care or can be cared for in same environment as prior to hospitalization? : Yes Living arrangements comments: : LIVES WITH ROOMMATE Baseline cognitive status: : *Oriented to person, place, situation, time and present Physical environment modification needed / anticipated for discharge: : No Medication Management: : Patient states can afford medications Planned post hospital services available for patient? : Yes Pharmacy name(s): : [facility] Planned post hospital services covered by insurance plan? : Yes Does Patient have transportation to get home and to follow-up medical appointments when discharged from the hospital? : No Comments: : HE STATED HE WILL TAKE A CAB Would patient like to participate in any Care Coordination programs (if applicable): : Not applicable Does the patient have electricity at home? : Yes Does the patient have running water in their house? : Yes Equipment in use: : None Mental health screen: : No mental health history Psychosocial status: : Independent adult (65+) Abuse/Neglect: : None Resources / Services in place: : None DCP Re-evaluation QUESTION: ANSWER Would patient like to participate in any Care Coordination programs (if applicable): : Not applicable PATIENT: OLIVIA TABARES ENCOUNTER: [id number] MEDICAL RECORD#: [id number] ADMISSION DATE: 08/08/2020 DISCHARGE DATE: ATTENDING MD: EFREN ALVAREZ : AGE: 70 MARITAL STATUS: S DC PLAN ID: [id number] FACILITY: [facility] PRINTED ON: 08/11/20 10:29 CT All edits/amendments must be made on the electronic document DICTATION DATE: 08/11/20 1029 OPERATIONAL RISK MANAGER: DM 08/11/20 1029 RPT#: [id number] DC DATE: STATUS: ADM IN [facility] [address] [place] [address] END OF REPORT
--- NOTE | 2020-08-11 10:41 | MORECARE ---
CASE MANAGEMENT DISCHARGE SUMMARY PATIENT: OLIVIA TABARES UNIT: [id number] ADM DATE: 08/08/20 AGE: 70 : 52 SEX: M ROOM/BED: D.2238 AUTHOR: OSVALDO,DOC PHYSICIAN: REFERRING PHYSICIAN: EFREN STOKES DO DATE OF SERVICE: 08/11/20 Case Management Discharge Planning Summary COMMENTS ENTERED DATE: 08/11/20 10:21 CT COMMENT TYPE: Discharge Planning REVIEWER: Daphne Hahn CM met with patient to complete initial dc planning assessment. CM educated patient on the CM role and verbal consent given by patient to complete assessment. Patient lives at home with a roommate where he states that he is independent with his care. At discharge patient plans to return home and feels this is a safe discharge. He stated that he will take a taxi home. We spoke about IV abx at home and he stated that he could learn to do it. His roommate could help if needed. KRYSTAL signed for whoever takes his insurance and could see him the quickest. He would love to get out of here today. [facility] also signed and explained. [facility] can not accept the patient till Friday. I called [facility] and they can accept him on Friday. Shawn Martínez will come to his home on Fri and teach and start the meds. He will get the med balls. The plan will be to discharge home today after his abx today. Patient denied known discharge needs at this time. CM will continue to follow and will assist as needed with dc plans/needs. ENTERED DATE: 08/10/20 17:48 CT COMMENT TYPE: Discharge Planning REVIEWER: Daphne Hahn REFERRAL HAS BEEN SENT TO [facility] FOR QUOTES AND AVAILABILTY SPOKE WITH SVETLANA AND THEY BOTH WILL GET BACK WITH ME IN THE AM DCP REVIEW SUMMARY ANTICIPATED D/C DATE: EXPECTED LOS : CASE STATUS: DCP Initiated INITIAL REVIEW: 08/08/2020 INITIAL REVIEWER: Daphne Hahn FINAL DISCHARGE DISPOSITION: : FINAL REVIEWER: FINAL REVIEW DATE: DCP Focus Questions & Answers DCP Screen QUESTION: ANSWER High Risk Factors: : High risk meds DCP Evaluation QUESTION: ANSWER Patient and/or caregiver agree upon recommended discharge plan? : Yes Family / Caregiver's ability to cope with chronic illness: : a. Adequate (ability to meet patient's medical needs, ensures patient attends medical appts.) Patient's current cognitive status: : *Oriented to person, place, situation, time and present Patient's ability to cope with chronic illness : d. No chronic illness Does the patient have the ability to pay for or attain post discharge needs / services? : Yes Functional screen assessment: : Other Physical Status: : Independent with ADL's Is there a likelihood that the patient will require additional services to return to the preadmission environment? : Yes Functional screen comments: : WILL NEED IV ABX AT HOME Living Arrangements: : Home with others Other Equipment comments: : IV ABX AT HOME Results of this evaluation have been discussed with: : Patient Patient with capacity for self-care or can be cared for in same environment as prior to hospitalization? : Yes Living arrangements comments: : LIVES WITH ROOMMATE Baseline cognitive status: : *Oriented to person, place, situation, time and present Physical environment modification needed / anticipated for discharge: : No Medication Management: : Patient states can afford medications Planned post hospital services available for patient? : Yes Pharmacy name(s): : [facility] Planned post hospital services covered by insurance plan? : Yes Does Patient have transportation to get home and to follow-up medical appointments when discharged from the hospital? : No Comments: : HE STATED HE WILL TAKE A CAB Would patient like to participate in any Care Coordination programs (if applicable): : Not applicable Does the patient have electricity at home? : Yes Does the patient have running water in their house? : Yes Equipment in use: : None Mental health screen: : No mental health history Psychosocial status: : Independent adult (65+) Abuse/Neglect: : None Resources / Services in place: : None DCP Re-evaluation QUESTION: ANSWER Would patient like to participate in any Care Coordination programs (if applicable): : Not applicable PATIENT: OLIVIA TABARES ENCOUNTER: [id number] MEDICAL RECORD#: [id number] ADMISSION DATE: 08/08/2020 DISCHARGE DATE: ATTENDING MD: EFREN ALVAREZ : AGE: 70 MARITAL STATUS: S DC PLAN ID: [id number] FACILITY: [facility] PRINTED ON: 08/11/20 10:41 CT All edits/amendments must be made on the electronic document DICTATION DATE: 08/11/201040 CREAM SEPARATOR OPERATOR: TRACY 08/11/20 104 RPT#: [id number] DC DATE: STATUS: ADM IN [facility] [address] [place] [address] END OF REPORT
[2020-08-11] MEDS ORDERED: PERCOCET 10-321 EAC1 PO (12:54)
[2020-08-11] MEDS ORDERED: VISTARIL50 MG PO (12:55)
[2020-08-11] MEDS ORDERED: FLORAJEN DIGES1 EACH PO (12:55)
[2020-08-11] MEDS ORDERED: Rifampin PO (12:55)
[2020-08-11 12:58] VITALS: BP 172/7
[2020-08-11] MEDS ORDERED: CUBICIN500 MG IV (14:03)
--- NOTE | 2020-08-11 16:06 | NUR ---
I have reviewed this patient and I concur with the Shift Assessment completed by the Licensed Practical Nurse today this shift.
--- NOTE | 2020-08-14 14:11 | MORECARE ---
CASE MANAGEMENT DISCHARGE SUMMARY PATIENT: OLIVIA TABARES UNIT: [id number] ADM DATE: 08/08/20 AGE: 70 : 52 SEX: M ROOM/BED: D.2238 AUTHOR: OSVALDO,DOC PHYSICIAN: REFERRING PHYSICIAN: EFREN STOKES DO DATE OF SERVICE: 08/14/20 Case Management Discharge Planning Summary COMMENTS ENTERED DATE: 08/11/20 10:21 CT COMMENT TYPE: Discharge Planning REVIEWER: Daphne Hahn CM met with patient to complete initial dc planning assessment. CM educated patient on the CM role and verbal consent given by patient to complete assessment. Patient lives at home with a roommate where he states that he is independent with his care. At discharge patient plans to return home and feels this is a safe discharge. He stated that he will take a taxi home. We spoke about IV abx at home and he stated that he could learn to do it. His roommate could help if needed. KRYSTAL signed for whoever takes his insurance and could see him the quickest. He would love to get out of here today. [facility] also signed and explained. [facility] can not accept the patient till Friday. I called [facility] and they can accept him on Friday. Shawn Martínez will come to his home on Fri and teach and start the meds. He will get the med balls. The plan will be to discharge home today after his abx today. Patient denied known discharge needs at this time. CM will continue to follow and will assist as needed with dc plans/needs. ENTERED DATE: 08/10/20 17:48 CT COMMENT TYPE: Discharge Planning REVIEWER: Daphne Hahn REFERRAL HAS BEEN SENT TO [employer] [facility] FOR QUOTES AND AVAILABILTY SPOKE WITH [employer] AND THEY BOTH WILL GET BACK WITH ME IN THE AM DCP REVIEW SUMMARY ANTICIPATED D/C DATE: EXPECTED LOS : CASE STATUS: DCP Initiated INITIAL REVIEW: 08/08/2020 INITIAL REVIEWER: Daphne Hahn FINAL DISCHARGE DISPOSITION: : FINAL REVIEWER: FINAL REVIEW DATE: DCP Focus Questions & Answers DCP Screen QUESTION: ANSWER High Risk Factors: : High risk meds DCP Evaluation QUESTION: ANSWER Patient and/or caregiver agree upon recommended discharge plan? : Yes Patient's current cognitive status: : *Oriented to person, place, situation, time and present Patient's ability to cope with chronic illness : d. No chronic illness Family / Caregiver's ability to cope with chronic illness: : a. Adequate (ability to meet patient's medical needs, ensures patient attends medical appts.) Does the patient have the ability to pay for or attain post discharge needs / services? : Yes Functional screen assessment: : Other Physical Status: : Independent with ADL's Functional screen comments: : WILL NEED IV ABX AT HOME Is there a likelihood that the patient will require additional services to return to the preadmission environment? : Yes Living Arrangements: : Home with others Other Equipment comments: : IV ABX AT HOME Results of this evaluation have been discussed with: : Patient Patient with capacity for self-care or can be cared for in same environment as prior to hospitalization? : Yes Baseline cognitive status: : *Oriented to person, place, situation, time and present Living arrangements comments: : LIVES WITH ROOMMATE Physical environment modification needed / anticipated for discharge: : No Medication Management: : Patient states can afford medications Planned post hospital services available for patient? : Yes Pharmacy name(s): : [facility] Planned post hospital services covered by insurance plan? : Yes Does Patient have transportation to get home and to follow-up medical appointments when discharged from the hospital? : No Comments: : HE STATED HE WILL TAKE A CAB Would patient like to participate in any Care Coordination programs (if applicable): : Not applicable Does the patient have electricity at home? : Yes Does the patient have running water in their house? : Yes Equipment in use: : None Mental health screen: : No mental health history Psychosocial status: : Independent adult (65+) Abuse/Neglect: : None Resources / Services in place: : None DCP Re-evaluation QUESTION: ANSWER Would patient like to participate in any Care Coordination programs (if applicable): : Not applicable PATIENT: OLIVIA TABARES ENCOUNTER: [id number] MEDICAL RECORD#: [id number] ADMISSION DATE: 08/08/2020 DISCHARGE DATE: 08/11/2020 ATTENDING MD: EFREN ALVAREZ : AGE: 70 MARITAL STATUS: S DC PLAN ID: [id number] FACILITY: [facility] PRINTED ON: 08/14/20 14:11 CT All edits/amendments must be made on the electronic document DICTATION DATE: 08/14/201410 DIRECTOR OF STRATEGIC SALES: TRACY 08/14/201410 RPT#: [id number] DC DATE:08/11/20 STATUS: DIS IN [facility] [address] [place] [address] END OF REPORT
== END 2020-08-11 16:00 | disposition home health service (06) | DRG 863 ==
LOC: D.SDCHOLD 09:17 → D.MS 09:17
PROVIDERS: General Practice; ADMIT Orthopaedic Surgery; ATTEND Orthopaedic Surgery
PROC: B5181ZA Fluoroscopy of Superior Vena Cava using Low Osmolar Contrast, Guidance (ICD-10-PCS; 2020-08-08)
PROC: 0R9J4ZZ Drainage of Right Shoulder Joint, Percutaneous Endoscopic Approach (ICD-10-PCS; principal; 2020-08-08 13:30)
PROC: 02HV33Z Insertion of Infusion Device into Superior Vena Cava, Percutaneous Approach (ICD-10-PCS; 2020-08-08 16:00)
DX: T81.49XA Infection following a procedure, other surgical site, initial encounter (principal); Y83.9 Surgical procedure, unspecified as the cause of abnormal reaction of the patient, or of later complication, without mention of misadventure at the time of the procedure; E11.9 Type 2 diabetes mellitus without complications; I10 Essential (primary) hypertension; J44.9 Chronic obstructive pulmonary disease, unspecified; G89.29 Other chronic pain; M54.9 Dorsalgia, unspecified; Z72.0 Tobacco use

== ENCOUNTER → 2020-08-21 16:10 | Outpatient (CLI) | payer MEDICARE, MEDICAID ==
[2020-08-10 13:55] VITALS: BMI 34.9
[~2020-08-21 16:10] MED LIST changes: +CUBICIN500 MG IV; +FLORAJEN DIGES1 EACH PO; +PERCOCET 10-321 EAC1 PO; +Rifampin PO; +VISTARIL50 MG PO
[2020-08-21 16:16] LABS: BASOPHILS 0.3 % (0-2); EOSINOPHILS 7.1 % (0-7); HEMATOCRIT 38.4 % (42.0-54.0); HEMOGLOBIN 13.1 g/dL (13.5-17.5); IMMATURE GRANULOCYTES 0.2 % (0-5); LYMPHOCYTE ABS# 3.04 10x3/uL (1.32-3.57); LYMPHOCYTES 34.4 % (15-50); MCH 29.6 pg (26.0-34.0); MCHC 34.1 g/dL (31.0-37.0); MCV 86.7 fL (80.0-100.0); MEAN PLATELET VOLUME 9.3 fL (7.4-10.4); MONOCYTES 10.2 % (2-11); NEUTROPHIL ABS# 4.21 10x3/uL (1.78-5.38); NEUTROPHILS 47.8 % (40-80); RBC 4.43 10x6/uL (4.20-6.10); WBC 8.8 10x3/uL (4.8-10.8)
[2020-08-21 16:24] LABS: C-REACTIVE PROTEIN 2.5 mg/dL (0.0-0.9); CREATININE - SERUM 0.9 mg/dL (0.6-1.3)
[2020-08-21 16:27] LABS: PLATELET COUNT 446 10x3/uL (130-400)
== END | disposition home or self-care (01) ==
LOC: D.LABREF 16:10
PROVIDERS: ATTEND Orthopaedic Surgery
DX: T81.41XA Infection following a procedure, superficial incisional surgical site, initial encounter (principal)

== ENCOUNTER → 2020-08-28 11:30 | Outpatient (CLI) | payer MEDICARE, MEDICAID ==
[2020-08-10 13:55] VITALS: BMI 34.9
[2020-08-28 12:38] LABS: BASOPHILS 1.1 % (0-2); EOSINOPHILS 6.4 % (0-7); HEMOGLOBIN 13.2 g/dL (13.5-17.5); MCH 29.7 pg (26.0-34.0); MCHC 33.8 g/dL (31.0-37.0); MCV 87.9 fL (80.0-100.0); MEAN PLATELET VOLUME 7.5 fL (7.4-10.4); MONOCYTES 7.6 % (2-11); NEUTROPHILS 57.9 % (40-80); PLATELET COUNT 394 10x3/uL (130-400); RBC 4.43 10x6/uL (4.20-6.10); RDW 14.1 % (11.5-14.5); WBC 8.5 10x3/uL (4.8-10.8)
[2020-08-28 12:40] LABS: CREATININE - SERUM 0.8 mg/dL (0.6-1.3)
== END | disposition home or self-care (01) ==
LOC: D.LABREF 11:30
PROVIDERS: ATTEND Orthopaedic Surgery
DX: L89.154 Pressure ulcer of sacral region, stage 4 (principal)

== ENCOUNTER → 2020-09-04 10:28 | Outpatient (CLI) | payer MEDICARE, MEDICAID ==
[2020-08-10 13:55] VITALS: BMI 34.9
[2020-09-04 10:46] LABS: BASOPHILS 0.9 % (0-2); EOSINOPHILS 9.9 % (0-7); HEMATOCRIT 37.1 % (42.0-54.0); HEMOGLOBIN 12.6 g/dL (13.5-17.5); LYMPHOCYTES 31.4 % (15-50); MCH 29.8 pg (26.0-34.0); MCHC 34.1 g/dL (31.0-37.0); MCV 87.5 fL (80.0-100.0); MEAN PLATELET VOLUME 7.3 fL (7.4-10.4); NEUTROPHILS 49.8 % (40-80); RBC 4.24 10x6/uL (4.20-6.10); RDW 14.2 % (11.5-14.5); WBC 8.6 10x3/uL (4.8-10.8)
[2020-09-04 10:49] LABS: C-REACTIVE PROTEIN 2.5 mg/dL (0.0-0.9); CREATININE - SERUM 1.2 mg/dL (0.6-1.3)
[2020-09-04 10:52] LABS: PLATELET COUNT 281 10x3/uL (130-400)
== END | disposition home or self-care (01) ==
LOC: D.LABREF 10:28
PROVIDERS: ATTEND Orthopaedic Surgery
DX: T81.41XA Infection following a procedure, superficial incisional surgical site, initial encounter (principal)

== ENCOUNTER → 2020-09-20 18:27 | Outpatient (CLI) | payer MEDICARE, MEDICAID ==
[2020-08-10 13:55] VITALS: BMI 34.9
[2020-09-20 18:48] LABS: BASOPHILS 0.7 % (0-2); HEMATOCRIT 40.5 % (42.0-54.0); HEMOGLOBIN 13.6 g/dL (13.5-17.5); LYMPHOCYTES 31.7 % (15-50); MCH 29.4 pg (26.0-34.0); MCHC 33.7 g/dL (31.0-37.0); MCV 87.5 fL (80.0-100.0); MEAN PLATELET VOLUME 7.4 fL (7.4-10.4); MONOCYTES 8.1 % (2-11); NEUTROPHILS 52.5 % (40-80); RBC 4.63 10x6/uL (4.20-6.10); WBC 7.9 10x3/uL (4.8-10.8)
[2020-09-20 18:49] LABS: PLATELET COUNT 358 10x3/uL (130-400)
[2020-09-20 18:58] LABS: C-REACTIVE PROTEIN 3.5 mg/dL (0.0-0.9); CREATININE - SERUM 0.8 mg/dL (0.6-1.3)
[2020-09-20 20:06] LABS: ERYTHROCYTE SEDIMENTATION RATE 16 mm/hr (0-20)
== END | disposition home or self-care (01) ==
LOC: D.LABREF 18:27
PROVIDERS: ATTEND Nurse Practitioner Family
DX: T81.40XD Infection following a procedure, unspecified, subsequent encounter (principal)

== ENCOUNTER → 2020-09-21 08:50 | Outpatient (CLI) | payer MEDICARE, MEDICAID ==
[2020-08-10 13:55] VITALS: BMI 34.9
== END | disposition home or self-care (01) ==
LOC: D.US 08:50
PROVIDERS: ATTEND Nurse Practitioner
DX: N50.819 Testicular pain, unspecified (principal)